=== PATIENT | female | born 1985 ===

== ENCOUNTER 2018-04-16 10:03 | Emergency (ER) | payer OTHER ==
[~2018-04-16] VITALS: Ht 162.6 cm; Wt 99.8 kg
[2018-04-16] MEDS ORDERED: SYNTHROID50 MCG (10:44)
== END 2018-04-16 14:08 | disposition home or self-care (01) ==
LOC: ER 10:03
DX: S60.222A Contusion of left hand, initial encounter (principal); G89.11 Acute pain due to trauma; W50.0XXA Accidental hit or strike by another person, initial encounter; Y93.89 Activity, other specified; Y92.89 Other specified places as the place of occurrence of the external cause; Y99.8 Other external cause status